=== PATIENT | male | born 1985 | race Two or more races ===

== ENCOUNTER → 2024-06-30 | Outpatient (CLI) | payer MEDICAID, SELFPAY ==
--- NOTE | 2024-06-30 10:30 | XR_ITS ---
Examination: CT middle inner ear, without contrast. 2-D coronal reconstructions. 2-D sagittal reconstructions. Date and time of exam: June 30, 2024 1045 hours INDICATIONS: Intermittent left ear pain one year CTDI: vol (mGy): 16 DLP: (mGycm):11 Technique: Multiple 1.0 mm axial sections of the middle inner ears bilaterally. High-resolution 64 slice scanner utilized. 2-D coronal reconstructions 2-D sagittal reconstructions Low dose protocols were performed. One or more of the following dose reduction techniques were used; automated exposure control, adjustment of the mA and/or KV according to patient size, use of iterative reconstruction technique. Findings: Axial sections of the right demonstrate adequate mastoid aeration. Jugular fossa and carotid canal do not appear remarkable. No deformity of the ossicles. Porus acusticus internus does not exhibit erosion. Cochlear apparatus unremarkable. Semicircular canals normal. External auditory canal open. Coronal reconstructions demonstrate no erosion of the scutum. No soft tissue mass in the attic or Prussak's space is seen. Ossicular mass intact. Axial sections of the left demonstrate prominently reduced mastoid aeration. Acute left mastoiditis Jugular fossa and carotid canal do not appear remarkable. No deformity of the ossicles. Porus acusticus internus does not exhibit erosion. Cochlear apparatus unremarkable. Semicircular canals normal. Left otitis media Coronal reconstructions demonstrate no erosion of the scutum. Soft tissue mass in the attic or Prussak's space is seen. Ossicular mass intact. Roof of the mastoid air cells appear intact bilaterally. Impression: Prominent chronic left mastoiditis Acute left mastoiditis Left otitis media Soft tissue mass in the left adequate Prussak's space
== END | disposition home or self-care (01) ==
PROVIDERS: PCP Family Medicine; Referring Provider Otolaryngology; Visit Provider Otolaryngology
DX: H70.92 Unspecified mastoiditis, left ear (principal); H70.002 Acute mastoiditis without complications, left ear; H66.92 Otitis media, unspecified, left ear; H93.8X2 Other specified disorders of left ear
CPT/HCPCS: 70480

== ENCOUNTER 2024-07-11 07:55 | Day surgery (SDC) | payer MEDICAID, SELFPAY ==
--- NOTE | 2024-07-09 07:00 | EKG_ITS ---
[facility] Test Date: 2024-07-09 Pat Name: PIERRE CLIFTON Department: Room: - Gender: Male Inspector Returned Materials: SADE : 1985 Requested By: Dalton Javier Order Number: [id number] Reading MD: Dalton Javier Measurements Intervals Blair Rate: 59 P: 31 AR: 160 QRS: 38 QRSD: 85 T: 51 QT: 386 QTc: 385 Interpretive Statements SINUS BRADYCARDIA No previous ECG available for comparison /store/S0/[id number]
[2024-07-09 09:21] VITALS: BMI 28.3
--- NOTE | 2024-07-10 15:25 | SUR.PREOP ---
Pt notified to come in tomorrow at 0800 for surgery.
[2024-07-11] VITALS (8 sets, daily range): BP systolic 98–116; BP diastolic 55–75; PULSE 68–77; RESP 11–16; TEMP 36.2–36.8; O2SAT 97–100; BMI 29.2
--- NOTE | 2024-07-11 12:15 | ESOP_ITS ---
Date of Procedure 07/11/24 Pre Op Diagnosis Left chronic mastoiditis Post Op Diagnosis Left chronic mastoiditis Procedure Left tympanomastoidectomy with facial nerve monitoring and temporalis fascia grafting Findings There is an area of inflammation and granulation on the tympanic membrane posteriorly and inferiorly. There appeared to be a pinhole perforation there as well. The middle ear mucosa was chronically inflamed. The mastoid cortex was sclerotic and the cells that were present had mucosal inflammation as well. The ossicular chain was intact and mobile. The chorda tympani nerve was visualized and preserved. The facial nerve was visualized and preserved. It was confirmed with the nerve monitor. Procedure Description Patient had a chronic draining ear for the last 9 months refractory to medical therapy. CT scan confirmed the diagnosis of chronic mastoiditis. He wished to have surgery performed. The risk of bleeding infection hearing loss dizziness tinnitus decreased sense of taste facial paralysis were all discussed with him. He understood this as well as anticipated outcomes and wished to proceed. Patient was marked and shaved in the preoperative setting and transferred to the operative suite where he was anesthetized and intubated. Facial nerve monitoring electrodes were placed in usual fashion for the left ear. Timeout was performed. Patient was sterilely prepped and draped. The postauricular area was injected with 1% lidocaine with 1 100,000 dilution epinephrine as was the external canal. Approximately 6 cc total were used. The area of granulation tissue on the tympanic membrane was partially scraped off with the suction and sickle knife and then finished off with the CO2 laser at a setting of 1 W. Care was taken not to cause a perforation. Once this was performed a posterior tympanomeatal flap was elevated. Findings were as noted above. Some of the thickened mucosa on the promontory was vaporized with the CO2 laser at a setting of 2 W. Care was taken not to injure any of the underlying structures. The ossicular chain was found to be intact and mobile. Posterior vascular strip was then created. The patient was oozy throughout the entire procedure. Cautery was used to control oozing from the flap. This was done after elevating the palva flap posteriorly. Temporalis fascia was harvested at this point for later grafting. It was pressed and dried. The ear was turned forward and the flap was pulled through oozing was controlled as noted above. Self-retaining r etractors were placed. The canal wall up mastoidectomy was performed dissecting down to the sigmoid sinus inferiorly and then up near the tegmen superiorly. The canal wall was thin. There were decreased number of air cells. There was a large cell over the horizontal canal which is identified. The facial nerve was identified in its course and confirmed with the nerve stimulator once the drilli ng was completed. The attic region was opened up and a good flow of saline was present through it into the middle ear. There was some brisk bleeding off of the bone of the tegmen and this was controlled with bone wax and epi. The mastoid cavity and middle ear space were irrigated with warm saline solution and suction. The middle ear was packed with Surgifoam dipped in Ciprodex. The graft was dipped and then brought into the field and placed underneath the area posteriorly and inferiorly over the drum have been worked out externally. The tympanomeatal flap was returned back to its normal position and then Surgifoam was packed on top of that. The ear was turned back and closed in a multilayer fashion with 4-0 Vicryl and Dermabond on the skin. The external meatus was packed with antibiotic ointment and Adaptic with a sterile cottonball. Facial nerve monitoring electrodes were removed the patient was awakened and taken the recovery room in stable condition Anesthesia GETA Pathology / specimen None Estimated Blood Loss 20 Surgeon Dalton Hernandez DO Surgical Staff Operation Date: 07/11/24 10:15 Case Staff Anesthesiologist: Aaron Garcia
--- NOTE | 2024-07-11 12:25 | SUR.PHASEI ---
pt received from OR in recovery bay 1. pt obtunded, breathing unlabored on oxymask 8l, oral airway in place. v/s stable. pt dressing to left ear cdi. report received from Dr. Garcia and Paulino LLAMAS.
--- NOTE | 2024-07-11 13:20 | SUR.PHASEII ---
pt able to tolerate oral fluids without difficulty swallowing or nausea/vomiting.
--- NOTE | 2024-07-11 13:38 | SUR.PHASEII ---
pt awake and alert, breathing unlabored on room air. v/s stable. pt dressing to left ear cdi. pt able to ambulate to wheelchair with steady gait. d/c instructions given with parents in room using diplomatic interpreter Kezia [id number], all questions answered. pt d/c via wheelchair with all belongings.
== END 2024-07-11 13:38 | disposition home or self-care (01) ==
PROVIDERS: Referring Provider Otolaryngology; Visit Provider Otolaryngology
PROC: (CPT 69502; principal; 2024-07-11 10:00)
DX: H70.12 Chronic mastoiditis, left ear (principal); H91.92 Unspecified hearing loss, left ear; Z01.810 Encounter for preprocedural cardiovascular examination
CPT/HCPCS: 69641; 93005; A4217; A4649; J0171; J0690; J1100; J1885; J2250; J2405; J2704; J3010; J3473; J3490; J7040; A9270